=== PATIENT | female | born 1975 | race Caucasian/White ===

== ENCOUNTER → 2020-01-25 | Outpatient (CLI) | payer BC ==
--- NOTE | 2020-01-25 11:01 | CARD ---
MR#: [id number] Date of Study: 01/25/2020 Ordering Physician: AMY AYOUB, Referring Physician: AMY AYOUB, Tech: Katheryn Thao CHELY APPROVED REPORT EXAM: Two-dimensional and M-mode echocardiogram with Doppler and color Doppler. Other Information Quality : Good INDICATION Lower Extremity Edema 2D DIMENSIONS RVDd2.2 (2.9-3.5cm)Left Atrium(2D)3.1 (1.6-4.0cm) IVSd0.7 (0.7-1.1cm)Aortic Root(2D)2.9 (2.0-3.7cm) LVDd4.3 (3.9-5.9cm)LVOT Diameter1.9 (1.8-2.4cm) PWd0.5 (0.7-1.1cm)LVDs3.0 (2.5-4.0cm) FS (%) 31.4 %SV49.8 ml LVEF(%)59.6 (>50%) Aortic Valve AoV Peak Luis Alberto.120.1cm/sAoV VTI20.5cm AO Peak GR.5.8mmHgLVOT VTI 20.94cm AO Mean GR.3mmHgAVA (VTI)3.00cm2 Mitral Valve MV E Rcxggtbk14.0cm/sMV DECEL [id number] MV A Slmbumxn69.4cm/sE/A Ratio0.9 TDI Lateral E' P. V13.06cm/sMedial E' P. V12.55cm/s E/Lateral E'4.8E/Medial E'5.0 Tricuspid Valve TR P. Qbpmlvoc776ix/sRAP RDWARHTD4qxVf TR Peak Gr.30jpGaYDZM20qiXq Pulmonary Vein S1 Olkrvlnm29.3cm/sS2 Decszuot53.34cm/s D2 Twnqelpi72.3cm/s LEFT VENTRICLE The left ventricle is normal size. There is normal left ventricular wall thickness. The left ventricu lar systolic function is normal. The Ejection Fraction is 55-60%. There is normal LV segmental wall m otion. The left ventricular diastolic function and filling is normal for age. RIGHT VENTRICLE The right ventricle is normal size. The right ventricular systolic function is normal. ATRIA The left atrium size is normal. The right atrium size is normal. The interatrial septum is intact wit h no evidence for an atrial septal defect or patent foramen ovale as noted on 2-D or Doppler imaging. AORTIC VALVE The aortic valve is not well visualized but appears to be functioning normally by Doppler interrogati on. Doppler and Color Flow revealed no significant aortic regurgitation. There is no significant aort ic valvular stenosis. MITRAL VALVE The mitral valve is normal in structure and function. There is no evidence of mitral valve prolapse. There is no mitral valve stenosis. Doppler and Color-flow revealed trace mitral regurgitation. TRICUSPID VALVE The tricuspid valve is normal in structure and function. Doppler and Color Flow revealed trace tricus pid regurgitation. The PA pressure was estimated at 20 mmHg. There is no tricuspid valve stenosis. PULMONIC VALVE The pulmonic valve is not well visualized. Doppler and Color Flow revealed no pulmonic valvular regur gitation. There is no pulmonic valvular stenosis. GREAT VESSELS The aortic root is normal in size. The ascending aorta is not well seen. The IVC is normal in size an d collapses >50% with inspiration. PERICARDIAL EFFUSION There is no evidence of significant pericardial effusion. Critical Notification Critical Value: No <Conclusion> The left ventricular systolic function is normal. The Ejection Fraction is 55-60%. There is normal LV segmental wall motion. Trace tricuspid regurgitation. The PA pressure was estimated at 20 mmHg. There is no evidence of significant pericardial effusion. Signed by : Jd Bates, Electronically Approved : 01/25/2020 11:01:09
== END | disposition home or self-care (01) ==
LOC: ECHO 08:43
PROVIDERS: ATTEND Family Medicine
DX: M79.89 Other specified soft tissue disorders (principal); F10.20 Alcohol dependence, uncomplicated
CPT/HCPCS: 93306

== ENCOUNTER 2020-04-11 12:14 | Emergency (ER) | payer BC ==
[~2020-04-11] VITALS: Ht 175.3 cm; Wt 90.9 kg
--- NOTE | 2020-04-11 12:43 | PHYS DOC ---
Past Medical History Past Medical History: Anxiety, Depression, Hypertension, Pancreatitis, Other Additional Past Medical Histor: PTSD, DVTS Past Surgical History: Cholecystectomy, Hysterectomy Smoking Status: Current Every Day Smoker Additional Information: 1 PPD Alcohol Use: Sober General Adult EDM: Chief Complaint: LOWER EXTREMITY SWELLING HPI: HPI: Patient is a 45 year old female with a history of anxiety, depression, hypertension, DVT 8 years ago currently not on blood thinners, varicose veins, current smoker who presents to the ED today concerned she has a DVT to the left lower extremity. Patient is complaining of pain to the left proximal calf for 2 weeks. Patient denies anything specifically exacerbating or relieving the pain. Patient states she has severe anxiety and depression and is on several medications, she verbalizes suicidal ideations right now with no plan. Ry from the PAT team was called to come and talk to patient. Review of Systems: Review of Systems: Constitutional: Denies fever or chills. [] Eyes: Denies change in visual acuity. [] HENT: Denies nasal congestion or sore throat. [] Respiratory: Denies cough or shortness of breath. [] Cardiovascular: Denies chest pain or edema. [] GI: Denies abdominal pain, nausea, vomiting, bloody stools or diarrhea. [] : Denies dysuria. [] Musculoskeletal: Reports left lower extremity swelling and pain. Denies back pain Integument: Denies rash. [] Neurologic: Denies headache, focal weakness or sensory changes. [] Psychiatric: Denies depression or anxiety. [] Heart Score: Risk Factors: Risk Factors: DM, Current or recent (<one month) smoker, HTN, HLP, family history of CAD, obesity. Risk Scores: Score 0 - 3: 2.5% MACE over next 6 weeks - Discharge Home Score 4 - 6: 20.3% MACE over next 6 weeks - Admit for Clinical Observation Score 7 - 10: 72.7% MACE over next 6 weeks - Early Invasive Strategies Allergies: Allergies: Allergies Coded Allergies Type Severity Reaction Last Updated Verified Sulfa (Sulfonamide Antibiotics) Allergy Intermediate RASH 04/11/20 Yes Physical Exam: PE: Constitutional: Well developed, well nourished, no acute distress, non-toxic appearance. [] HENT: Normocephalic, atraumatic, bilateral external ears normal, oropharynx moist, no oral exudates, nose normal. [] Eyes: PERRLA, EOMI, conjunctiva normal, no discharge. [] Neck: Normal range of motion, no tenderness, supple, no stridor. [] Cardiovascular:Heart rate regular rhythm, no murmur [] Lungs & Thorax: Bilateral breath sounds clear to auscultation [] Abdomen: Bowel sounds normal, soft, no tenderness, no masses, no pulsatile masses. [] Skin: Warm, dry, no erythema, no rash. [] Back: No tenderness, no CVA tenderness. [] Extremities: Bilateral lower extremities with large varicose veins area of concern on the left proximal guajardo has been bigger varicose veins, trace erythema but negative Homans sign bilaterally. +2 bilateral pedal pulses. Neurologic: Alert and oriented X 3, normal motor function, normal sensory function, no focal deficits noted. [] Psychologic: Flat affect, anxious appearing. Current Patient Data: Vital Signs: Vital Signs Date Time Temp Pulse Resp B/P (MAP) Pulse Ox O2 Delivery O2 Flow Rate FiO2 04/11/20 12:18 97.6 103 18 158/86 (110) 100 Room Air 97.6 EKG: EKG: [] Radiology/Procedures: Radiology/Procedures: []PROCEDURE: VENOUS LOWER EXTREMITY LEFT EXAMINATION: VENOUS LOWER EXTREMITY LEFT HISTORY: Pain. Varicose veins. COMPARISON/CORRELATION: None FINDINGS: Left lower extremity duplex venous ultrasound exam was performed. Grayscale, color Doppler, and spectral Doppler imaging was performed. Compression and augmentation was performed. Left common femoral vein is patent. There is a large collateral vein which communicates with the left common femoral vein. The left , superficial femoral vein, popliteal vein, and saphenofemoral junction are normal with no evidence of deep venous thrombus. Visualized left calf veins are unremarkable. Normal compressibility and augmentation is evident. At the medial left upper calf region where erythema and swelling is present, varicose veins are present with thrombus and lack of flow. IMPRESSION: Superficial thrombophlebitis involving the left calf varicose veins. Large patent collateral vein identified to communicate with the common femoral vein. No evidence of deep venous thrombus involving the left lower extremity. Electronically signed by: Jason Enrique MD (04/11/2020 1:35 PM) [id number] DICTATED and SIGNED BY: JASON ENRIQUE MD DATE: 04/11/20 1335 Course & Med Decision Making: Course & Med Decision Making Pertinent Labs and Imaging studies reviewed. (See chart for details) This is a 45-year-old female patient presenting to the ED today with complaints of left lower extremity pain and swelling and concern for DVT. Previous history of DVT 8 years ago. Also verbalized SI with no plan. Ry from the PAT team talked to patient. Venous Doppler of the left lower extremity was noted forSuperficial t hrombophlebitis involving the left calf varicose veins.Large patent collateral vein identified to communicate with the common femoral vein. No evidence of deep venous thrombus involving the left lower extremity. Patient was discharged to home with aspirin. Follow-up with her PCP. Instructed to consider smoking cessation. She has psychiatrist help. Hong Disclaimer: Hong Disclaimer: This electronic medical record was generated, in whole or in part, using a voice recognition dictation system. Departure Departure Impression: Primary Impression: Superficial thrombophlebitis Qualified Codes: I80.8 - Phlebitis and thrombophlebitis of other sites Additional Impressions: Suicidal ideation Smoking addiction Disposition: HOME, SELF-CARE Condition: STABLE Referrals: UNKNOWN PCP NAME (PCP) TOM LEE MD follow up next week Patient Instructions: Smoking Cessation, Suicidal Feelings, How to Help Yourself, Varicose Veins Additional Instructions: You were evaluated in the emergency room, you do not have any deep vein thrombosis on the left lower extremity. You have superficial thrombosis in your varicose veins. This can be managed with aspirin 325 mg. Consider smoking cessation. Follow-up with your doctor next week. CHRIS SELLERS APRN Apr 11, 2020 12:43
--- NOTE | 2020-04-11 13:38 | RAD ---
EXAMINATION: VENOUS LOWER EXTREMITY LEFT HISTORY: Pain. Varicose veins. COMPARISON/CORRELATION: None FINDINGS: Left lower extremity duplex venous ultrasound exam was performed. Grayscale, color Doppler, and spectral Doppler imaging was performed. Compression and augmentation was performed. Left common femoral vein is patent. There is a large collateral vein which communicates with the left common femoral vein. The left , superficial femoral vein, popliteal vein, and saphenofemoral junction are normal with no evidence of deep venous thrombus. Visualized left calf veins are unremarkable. Normal compressibility and augmentation is evident. At the medial left upper calf region where erythema and swelling is present, varicose veins are present with thrombus and lack of flow. IMPRESSION: Superficial thrombophlebitis involving the left calf varicose veins. Large patent collateral vein identified to communicate with the common femoral vein. No evidence of deep venous thrombus involving the left lower extremity. Electronically signed by: Jason Ordaz MD (04/11/2020 1:35 PM) [id number]
[2020-04-11 13:53] VITALS: BP 131/79
== END 2020-04-11 14:23 | disposition home or self-care (01) ==
LOC: ER 12:14
DX: I80.02 Phlebitis and thrombophlebitis of superficial vessels of left lower extremity (principal); R45.851 Suicidal ideations; F17.200 Nicotine dependence, unspecified, uncomplicated; F43.10 Post-traumatic stress disorder, unspecified; F32.9 Major depressive disorder, single episode, unspecified; F41.9 Anxiety disorder, unspecified; I10 Essential (primary) hypertension; Z90.710 Acquired absence of both cervix and uterus; Z88.2 Allergy status to sulfonamides
CPT/HCPCS: 93971; 99285

== ENCOUNTER 2021-05-23 09:33 | Emergency (ER) | payer BC ==
[~2021-05-23] VITALS: Ht 172.7 cm; Wt 95.0 kg
[2021-05-23] MEDS ORDERED: IV RINGERS,LACTATED 1000ML 1,000 ML IV ONE (10:00)
[2021-05-23 10:18] LABS: BASO # 0.1 x10^3/uL (0.0-0.2); BASO % 1 % (0-3); EOS # 0.1 x10^3/uL (0.0-0.7); EOS % 1 % (0-3); HEMATOCRIT 47.2 % (36.0-47.0); HEMOGLOBIN 15.6 g/dL (12.0-15.5); LYMPH # 1.8 x10^3/uL (1.0-4.8); LYMPH % 14 % (24-48); MEAN CORPUSCULAR HEMOGLOBIN 31 pg (25-35); MEAN CORPUSCULAR HGB CONC 33 g/dL (31-37); MEAN CORPUSCULAR VOLUME 93 fL (79-100); MONO # 1.1 x10^3/uL (0.0-1.1); MONO % 8 % (0-9); NEUT # 9.8 x10^3/uL (1.8-7.7); NEUT % 76 % (31-73); PLATELET COUNT 244 x10^3/uL (140-400); RED CELL DISTRIBUTION WIDTH 14.1 % (11.5-14.5); WHITE BLOOD COUNT 12.9 x10^3/uL (4.0-11.0)
[2021-05-23 10:42] LABS: CREATININE 1.8 mg/dL (0.6-1.0); GFR 30.4; POTASSIUM 3.3 mmol/L (3.5-5.1)
[2021-05-23] MEDS ORDERED: ONDANSETRON PF 4 MG/2 ML VIAL. IVP ONE ×2 (10:45→20:30)
[2021-05-23 10:48] LABS: ALBUMIN 3.8 g/dL (3.4-5.0); ALBUMIN/GLOBULIN RATIO 0.9 (1.0-1.7); TOTAL BILIRUBIN 0.8 mg/dL (0.2-1.0); TOTAL PROTEIN 8.1 g/dL (6.4-8.2)
--- NOTE | 2021-05-23 12:32 | PHYS DOC ---
Past Medical History Past Medical History: Anxiety, Depression, Hypertension, Pancreatitis, Other Additional Past Medical Histor: PTSD, DVTS, DRUG ABUSE (JONATHAN BLUNT) Past Surgical History: Cholecystectomy, Hysterectomy (JONATHAN BLUNT) Smoking Status: Current Every Day Smoker Alcohol Use: Heavy (JONATHAN BLUNT) General Adult EDM: Chief Complaint: SUICDAL IDEATION HPI: HPI: Patient is a 46 year old female with history of multisubstance abuse and prior suicide attempts who presents with suicidal ideation and alcohol withdrawal. Patient states for the past 6 months she has been drinking greater than 1 pint of liquor each day. She also reports remission on methamphetamine use. Prior to 4 days ago, she had not used any IV drugs for 6 months. She reports that every day she has thoughts of harming herself. She has plan and access, she states she would overdose on her blood pressure medications. She has had prior admissions for suicide attempts in the past. Today, she is seeking psychiatric evaluation. (JONATHAN BLUNT) Review of Systems: Review of Systems: Constitutional: Denies fever or chills. Eyes: Denies change in visual acuity or visual field deficits. HENT: Denies nasal congestion or sore throat. Respiratory: Denies cough or shortness of breath. Cardiovascular: Denies chest pain or edema. GI: Reports nausea. Denies abdominal pain, vomiting, bloody stools or diarrhea. : Denies dysuria or hematuria. Musculoskeletal: Denies back pain or joint pain. Integument: Denies rash or other skin lesions. Neurologic: Denies focal weakness or sensory changes. Psychiatric: See HPI (JNOATHAN BLUNT) Heart Score: C/O Chest Pain: No (JONATHAN BLUNT) Current Medications: Current Medications Medications (Trade) Dose Ordered Sig/Juan Start Time Stop Time Status Last Admin Dose Admin Lorazepam (Ativan Inj) 0.5 mg 1X ONCE 05/23/21 10:45 05/23/21 10:46 DC 05/23/21 11:11 0.5 MG Ondansetron HCl (Zofran) 4 mg 1X ONCE 05/23/21 10:45 05/23/21 10:46 DC 05/23/21 11:11 4 MG Ringer's Solution 1,000 ml @ 1,000 mls/hr 1X ONCE 05/23/21 10:00 05/23/21 10:59 DC 05/23/21 10:54 1,000 MLS/HR (JONATHAN BLUNT) Allergies: Allergies: Allergies Coded Allergies Type Severity Reaction Last Updated Verified Sulfa (Sulfonamide Antibiotics) Allergy Intermediate RASH 04/11/20 Yes (JONATHAN BLUNT) Physical Exam: PE: Constitutional: Well developed, well nourished, no acute distress, non-toxic appearance. HENT: Normocephalic, atraumatic, bilateral external ears normal, oropharynx moist, no oral exudates, nose normal. Eyes: PERRLA, EOMI, conjunctiva normal, no discharge. Neck: Normal range of motion, no tenderness, supple, no stridor. Cardiovascular: Heart rate regular rhythm, no murmur. Lungs & Thorax: Bilateral breath sounds clear to auscultation. Abdomen: Bowel sounds normal, soft, no tenderness, no masses, no pulsatile ma sses. Skin: Warm, dry, no erythema, no rash. Back: No tenderness, no CVA tenderness. Extremities: No tenderness, no cyanosis, no clubbing, ROM intact, no edema. Neurologic: Alert and oriented x4, motor function grossly intact, sensory function grossly intact, no focal deficits noted. Psychologic: Affect depressed, poor judgment, mood "I need help." (JONATHAN BLUNT) Current Patient Data: Labs: Laboratory Tests Test 05/23/21 10:06 05/23/21 10:47 White Blood Count 12.9 x10^3/uL (4.0-11.0) H Red Blood Count 5.10 x10^6/uL (3.50-5.40) Hemoglobin 15.6 g/dL (12.0-15.5) H Hematocrit 47.2 % (36.0-47.0) H Mean Corpuscular Volume 93 fL (79-100) Mean Corpuscular Hemoglobin 31 pg (25-35) Mean Corpuscular Hemoglobin Concent 33 g/dL (31-37) Red Cell Distribution Width 14.1 % (11.5-14.5) Platelet Count 244 x10^3/uL (140-400) Neutrophils (%) (Auto) 76 % (31-73) H Lymphocytes (%) (Auto) 14 % (24-48) L Monocytes (%) (Auto) 8 % (0-9) Eosinophils (%) (Auto) 1 % (0-3) Basophils (%) (Auto) 1 % (0-3) Neutrophils # (Auto) 9.8 x10^3/uL (1.8-7.7) H Lymphocytes # (Auto) 1.8 x10^3/uL (1.0-4.8) Monocytes # (Auto) 1.1 x10^3/uL (0.0-1.1) Eosinophils # (Auto) 0.1 x10^3/uL (0.0-0.7) Basophils # (Auto) 0.1 x10^3/uL (0.0-0.2) Sodium Level 130 mmol/L (136-145) L Potassium Level 3.3 mmol/L (3.5-5.1) L Chloride Level 93 mmol/L (98-107) L Carbon Dioxide Level 29 mmol/L (21-32) Anion Gap 8 (6-14) Blood Urea Nitrogen 19 mg/dL (7-20) Creatinine 1.8 mg/dL (0.6-1.0) H Estimated GFR (Cockcroft-Gault) 30.4 BUN/Creatinine Ratio 11 (6-20) Glucose Level 92 mg/dL (70-99) Calcium Level 9.0 mg/dL (8.5-10.1) Total Bilirubin 0.8 mg/dL (0.2-1.0) Aspartate Amino Transferase (AST) 23 U/L (15-37) Alanine Aminotransferase (ALT) 35 U/L (14-59) Alkaline Phosphatase 104 U/L (46-116) Total Protein 8.1 g/dL (6.4-8.2) Albumin 3.8 g/dL (3.4-5.0) Albumin/Globulin Ratio 0.9 (1.0-1.7) L Ethyl Alcohol Level < 10 mg/dL (0-10) SARS-CoV-2 Antigen (Rapid) Negative (NEGATIVE) Laboratory Tests 05/23/21 10:06 Laboratory Tests 05/23/21 10:06 Vital Signs: Vital Signs Date Time Temp Pulse Resp B/P (MAP) Pulse Ox O2 Delivery O2 Flow Rate FiO2 05/23/21 12:00 74 159/88 (111) 100 Room Air 11/12/21 10:00 98.9 12 98.9 (JONATHAN BLUNT) Course & Med Decision Making: Course & Med Decision Making Pertinent Labs and Imaging studies reviewed. (See chart for details) Patient presents with alcohol withdrawal as well as suicidal ideation. Due to the fact that the patient has a plan, access and prior suicide attempts, it is likely that she will need to be admitted for inpatient psychiatric care. PAT team has been notified. After evaluation by [facility] psychologic assessment team, patient will be transferred to inpatient psychiatric facility. At this point, [facility] has availability and would be first choice to provide services for alcohol withdraw al as well. Yusra at [facility] requested some additional information prior to admission. The physician there had concern about her white blood cell count as well as electrolytes. I informed Yusra that there is no concern for active infection at this time, and that her electrolytes show some very mild dehydration. Patient did receive 1 L of fluid, we did not redraw labs. At this time, [facility] does not request a redraw. Patient's home med list was faxed to the facility as well. Patient accepted at [facility] under the care of Dr. Alarcon. (JONATHAN BLUNT) Course & Med Decision Making I was not involved in the care of this patient in the emergency department. The patient was seen initially under supervision of our daytime physician. I was updated by the [facility]HRZAD as the patient left the department for transfer to psychiatric hospital. I reviewed the documentation as above. I reviewed vital signs during the patients stay and there seemed to be no evidence of acute toxicity from antihypertensives, negative chronotropic agents, or sympathomimetics. An ecg was not available for review at time of chart review.I did review labs that showed a creatinine of 1.8 and mild hyponatremia 130, without an established baseline. No evidence of urinary tract infection, nephritic, nephrotic syndromes on UA, no hx of obstructive symptoms documented, and it appears this was felt to be pre-renal and was treated with IVF. (JASON MORALES MD) Dragon Disclaimer: Dragon Disclaimer: This electronic medical record was generated, in whole or in part, using a voice recognition dictation system. (JONATHAN BLUNT) Departure Departure Impression: Primary Impression: Suicidal ideation Additional Impression: Alcohol withdrawal Qualified Codes: F10.230 - Alcohol dependence with withdrawal, uncomplicated [facility] Condition: GUARDED Referrals: UNKNOWN PCP NAME (PCP) JONATHAN BLUNT May 23, 2021 12:32 JASON MORALES MD May 24, 2021 02:44
[2021-05-23 12:52] LABS: BILIRUBIN,URINE NEGATIVE (NEG); CLARITY,URINE CLEAR; COLOR,URINE YELLOW; NITRITE,URINE NEGATIVE (NEG); PH,URINE 5.5 (<5.0-8.0); PROTEIN,URINE NEGATIVE (NEG-TRACE); UROBILINOGEN,URINE 0.2 mg/dL (0.2 mg/dL)
[2021-05-23 12:56] LABS: BARBITURATES NEG (NEG); BENZODIAZEPINES NEG (NEG); CANNABINOIDS POS (NEG); COCAINE NEG (NEG); METHADONE NEG (NEG); OPIATES NEG (NEG); PHENCYCLIDINE NEG (NEG)
[2021-05-23 12:58] LABS: AMPHETAMINE/METHAMPHETAMINE POS (NEG)
[2021-05-23 12:59] LABS: BACTERIA,URINE 0 /HPF (0-FEW); RBC,URINE 0 /HPF (0-2); WBC,URINE OCC /HPF (0-4)
[2021-05-23] MEDS ORDERED: IBUPROFEN 200 MG TABLET. PO ONE (20:30)
[2021-05-23 21:03] VITALS: BP 133/71
== END 2021-05-23 21:11 ==
LOC: ER 09:33
DX: R45.851 Suicidal ideations (principal); Z20.822 Contact with and (suspected) exposure to COVID-19; F10.230 Alcohol dependence with withdrawal, uncomplicated; Y90.0 Blood alcohol level of less than 20 mg/100 ml; I10 Essential (primary) hypertension; F17.200 Nicotine dependence, unspecified, uncomplicated; Z88.2 Allergy status to sulfonamides
CPT/HCPCS: 36415; 80053; 80307; 81001; 81025; 85025; 87426; 96361; 96374; 96375; 96376; 99285; G0480; J2060; J2405; J7120; U0003; U0005